=== PATIENT | male | born 1995 | race Two or more races ===

== ENCOUNTER 2018-01-03 18:53 | Emergency (ER) | payer BC, OTHER ==
[~2018-01-03] VITALS: Ht 190.5 cm; Wt 104.3 kg
[2018-01-03 18:55] VITALS: BP 143/69
== END 2018-01-03 21:21 | disposition home or self-care (01) ==
LOC: ER 18:53
DX: M54.9 Dorsalgia, unspecified (principal); M54.2 Cervicalgia; M62.838 Other muscle spasm; Z91.013 Allergy to seafood; V43.52XA Car driver injured in collision with other type car in traffic accident, initial encounter; Y93.89 Activity, other specified; Y99.8 Other external cause status; Y92.410 Unspecified street and highway as the place of occurrence of the external cause
CPT/HCPCS: 72040; 72100